=== PATIENT | male | born 1950 | race Two or more races ===

== ENCOUNTER → 2021-04-12 14:09 | Outpatient (BNVA) | payer OTHER, MEDICAID, SELFPAY | PROVIDERS: Visit Provider Urology | DX: N40.1 Benign prostatic hyperplasia with lower urinary tract symptoms (principal); N39.43 Post-void dribbling; R35.1 Nocturia; Z12.5 Encounter for screening for malignant neoplasm of prostate | CPT/HCPCS: 99202 ==

== ENCOUNTER 2021-04-28 13:49 | Outpatient (REF) | payer OTHER, MEDICAID, SELFPAY ==
--- NOTE | ~2021-04-28 | US_ITS ---
EXAMINATION: US ABDOMEN LIMITED CLINICAL INFORMATION: Right inguinal hernia. COMPARISON: None TECHNIQUE: Real-time imaging of the right lower quadrant with and without Valsalva maneuver using a linear transducer. FINDINGS: No hernia is appreciated by ultrasound. There are 2 small right inguinal lymph nodes. These are normal in size and demonstrate normal ultrasound morphology. US/US abdomen limited IMPRESSION: No hernia appreciated by ultrasound.
== END 2021-04-28 13:50 | disposition home or self-care (01) ==
LOC: HO.HMGCX 13:49
PROVIDERS: PCP Internal Medicine Geriatric Medicine; Visit Provider Internal Medicine
DX: K40.91 Unilateral inguinal hernia, without obstruction or gangrene, recurrent (principal)
CPT/HCPCS: 76705

== ENCOUNTER 2021-06-28 07:51 | Outpatient (RCR) | payer OTHER, SELFPAY | END 2021-09-13 15:44 | disposition home or self-care (01) | LOC: HO.WCC 07:51 | PROVIDERS: Visit Provider Physician Assistant | DX: T25.632A Corrosion of second degree of left toe(s) (nail), initial encounter (principal); T32.0 Corrosions involving less than 10% of body surface | CPT/HCPCS: 16020; 97597; 99212; 99213; 99214; 99215 ==

== ENCOUNTER → 2021-06-30 11:28 | Outpatient (BNVA) | payer OTHER, SELFPAY | PROVIDERS: PCP Internal Medicine; Referring Provider Internal Medicine; Visit Provider Surgery | DX: K40.90 Unilateral inguinal hernia, without obstruction or gangrene, not specified as recurrent (principal) | CPT/HCPCS: 99202 ==

== ENCOUNTER 2021-07-27 07:31 | Day surgery (SDC) | payer OTHER, SELFPAY ==
[2021-07-22 10:20] VITALS: BMI 34.1
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
[2021-07-27] VITALS (7 sets, daily range): BP systolic 140–161; BP diastolic 72–92; PULSE 67–89; RESP 16–18; TEMP 36.8–37.3; O2SAT 95–97
[2021-07-27] MEDS: Lactated Ringers 1,000 ML 100 ML IVCONT (08:34)
--- NOTE | 2021-07-27 10:54 | W.PM.OPN ---
Operative Note Operative Note Date of Service: 07/27/21 Narrative: Preoperative diagnosis: Right inguinal hernia Postoperative diagnosis: Same Procedure: Repair of Right inguinal hernia Surgeon: Saji Hair MD Director Of Field Service: Andria Andino PA-C Anesthesia: General LMA Indications for procedure: 71-year-old male patient with morbid obesity presenting with a painful right groin. Subsequent workup with CT in [place] revealed a right inguinal hernia. Operative findings:. Large right inguinal hernia, indirect containing preperitoneal fat. Repaired with a large PHS mesh. Specimen: Lipoma of the cord right side Estimated blood loss: 10 mL Complications: none Procedure details: Patient was brought to the OR and placed in a supine position. After administering general anesthesia the patient's abdomen was prepped with ChloraPrep and draped in a sterile fashion. A surgical time-out was called the consent confirmed. Patient received preoperative antibiotics and Venodyne boots were in place. Local anesthesia consisting of 0.5% Sensorcaine with epinephrine was infiltrated over the right inguinal ligament. Incision was then made in oblique fashion over the inguinal ligament. This carried out through subcutaneous tissue past Trang's fashion up to the external oblique aponeurosis. Additional local was infiltrated below the external oblique aponeurosis. This was then incised with a scalpel wide with the Metzenbaum scissors. Spermatic cord was then dissected free from the surrounding inguinal canal and retracted using a Maria T drain. The floor of the inguinal canal was examined and no direct hernia was identified. Fibers of the cremasteric muscle were then no hernia sac identified. A large lipoma of the cord was identified dissected down to the internal ring. This was then ligated and excised. This was sent as a specimen. The internal ring was then dissected further into the preperitoneal space. The preperitoneal space was widened with an open Ray-Zaid sponge. A large PHS mesh was then obtained and the circular underlay deployed within the preperitoneal space. The overlay was then secured to the pubic tubercle, conjoined tendon, and shelving edge of the inguinal ligament using a 0 Polysorb suture. A slit was made in the mesh in the mesh wrapped around the spermatic cord at the internal ring. This was secured to the shelving edge again using the 0 Polysorb suture. Wounds were then irrigated with saline and suctioned dry. External oblique aponeurosis was then closed using a running 2 0 Polysorb suture. Trang's fascia and dermis reapproximated using interrupted 3-0 Polysorb sutures. Skin was then closed using a running subcuticular 4-0 Polysorb suture. Steri-Strips 2 x 2 gauze and Tegaderm were then applied. The patient tolerated the procedure well. Sponge, instrument, needle counts reported as correct. Patient was transferred to PACU in stable condition.
--- NOTE | 2021-07-27 10:59 | MHC.SHP ---
Pre-Procedural Eval Section A Date of Service: 07/27/21 The patient is an INPATIENT: No Changes since office visit: Yes Patient answered all questions; No Cold of Flu in the past 2 weeks, No New Medical Problems and No Changes in Medication The History & Physical has been completed within 30 days and I have reviewed it.: Yes Section B Chief Complaint: unilateral inguinal hernia Allergies: Allergies Allergy/AdvReac Type Severity Reaction Status Date / Time No Known Allergies Allergy Verified 07/22/21 10:18 Plan Diagnosis/Plan: Unchanged I have reviewed the history and physical and performed a pertinent physical examination on my patient. No changes have occurred unless specified.
== END 2021-07-27 12:40 | disposition home or self-care (01) ==
PROVIDERS: PCP Internal Medicine Geriatric Medicine; Visit Provider Surgery
PROC: (CPT 49505; principal; 2021-07-27 09:30)
DX: K40.90 Unilateral inguinal hernia, without obstruction or gangrene, not specified as recurrent (principal); D17.6 Benign lipomatous neoplasm of spermatic cord; E66.01 Morbid (severe) obesity due to excess calories; Z68.33 Body mass index [BMI] 33.0-33.9, adult; E03.9 Hypothyroidism, unspecified; R73.03 Prediabetes; Z79.899 Other long term (current) drug therapy; Z18.10 Retained metal fragments, unspecified; Z87.828 Personal history of other (healed) physical injury and trauma; Z86.16 Personal history of COVID-19
CPT/HCPCS: 49505; 88304; C1781; J0690; J1100; J1885; J2405; J3010

== ENCOUNTER → 2021-08-04 13:38 | Outpatient (BNVA) | payer OTHER, SELFPAY | PROVIDERS: PCP Internal Medicine; Referring Provider Internal Medicine Geriatric Medicine; Visit Provider Surgery | DX: Z48.815 Encounter for surgical aftercare following surgery on the digestive system (principal) | CPT/HCPCS: 99212 ==

== ENCOUNTER → 2021-09-01 13:14 | Outpatient (BNVA) | payer OTHER, SELFPAY | PROVIDERS: PCP Internal Medicine; Referring Provider Internal Medicine; Visit Provider Surgery | DX: Z48.815 Encounter for surgical aftercare following surgery on the digestive system (principal); Z87.19 Personal history of other diseases of the digestive system | CPT/HCPCS: 99212 ==

== ENCOUNTER 2021-09-02 13:19 | Outpatient (REF) | payer MEDICARE, SELFPAY ==
[2021-09-02 14:49] LABS: MANUAL DIFF FLAG NO
[2021-09-02 15:27] LABS: Basophils Absolute Auto 0.1 X10*3/uL (0.0-0.2); Basophils Percent Auto 0.6 % (0-2); Eosinophils Absolute Auto 0.3 X10*3/uL (0.0-0.4); Eosinophils Percent Auto 3.8 % (0-4); Hematocrit 45.3 % (42.0-52.0); Hemoglobin 14.3 g/dl (14.0-18.0); Imm Gran Abs Auto 0.02 X10*3/uL (0.00-0.03); Imm Gran Pct Auto 0.3 % (0.0-0.4); Lymphocytes Absolute Auto 1.9 X10*3/uL (1.2-4.9); Lymphocytes Percent Auto 23.8 % (20-40); Mean Corpuscular HGB Conc 31.6 g/dl (31.0-36.0); Mean Corpuscular Hemoglobin 28.1 pg (27.0-33.0); Mean Corpuscular Volume 89.2 fL (80.0-98.0); Mean Platelet Volume 9.4 fL (9.4-12.4); Monocytes Absolute Auto 0.7 X10*3/uL (0.1-1.2); Monocytes Percent Auto 8.7 % (2-11); Neutrophils Absolute Auto 4.9 x10*3/uL (2.0-8.3); Neutrophils Percent Auto 62.8 % (45-73); Platelet Count 217 X10*3/uL (160-400); Red Blood Count 5.08 X10*6/uL (4.60-5.80); Red Cell Distribution Width 13.2 % (11.0-16.0); White Blood Count 7.8 X10*3/uL (4.8-10.8)
[2021-09-02 15:52] LABS: Alanine Aminotransferase 30 U/L (0-40); Albumin Level 4.5 g/dL (3.5-5.0); Alkaline Phosphatase 59 U/L (39-117); Anion Gap 12 (12-20); Aspartate Amino Transferase 22 U/L (5-37); Bilirubin Total 0.3 mg/dL (0.0-1.0); Blood Urea Nitrogen 27 mg/dL (9-16); Calcium 10.2 mg/dL (8.4-10.2); Carbon Dioxide 28 mmol/L (22-29); Chloride 105 mmol/L (96-108); Estimated Glomerular Filt Rate 57; Glucose Random 82 mg/dL (60-115); Potassium 5.1 mmol/L (3.3-5.1); Sodium 140 mmol/L (135-145); Total Protein 7.8 g/dL (6.5-8.0)
== END 2021-09-02 13:20 | disposition home or self-care (01) ==
LOC: HO.LAB 13:19
PROVIDERS: PCP Internal Medicine; Referring Provider Internal Medicine Geriatric Medicine; Visit Provider Nurse Practitioner
DX: K62.5 Hemorrhage of anus and rectum (principal); D12.6 Benign neoplasm of colon, unspecified; Z80.0 Family history of malignant neoplasm of digestive organs
CPT/HCPCS: 36415; 80053; 85025; 99202

== ENCOUNTER 2021-09-26 08:53 | Outpatient (REF) | payer OTHER, SELFPAY ==
--- NOTE | ~2021-09-26 | XR_ITS ---
EXAMINATION: XR KNEE, RIGHT CLINICAL INFORMATION: Pain. COMPARISON: None. TECHNIQUE: Four views of the right knee. FINDINGS: No acute fractures or malalignment. There is moderate tricompartmental degenerative osteoarthritis, more notable in the medial and patellofemoral compartments with joint space narrowing and osteophytes. There is an approximately 2.2 cm pedunculated osteochondroma in the proximal fibula projecting away from the epiphysis. Small joint effusion and scattered vascular calcifications. XR/XR knee RT 4V IMPRESSION: No acute fractures or malalignment. Moderate tricompartmental degenerative changes. There is a 2.2 cm pedunculated osteochondroma in the proximal fibula. If symptomatic, surgical referral or further evaluation with an MR could be obtained.
--- NOTE | ~2021-09-26 | XR_ITS ---
EXAMINATION: XR BILATERAL HIPS WITH AP PELVIS CLINICAL INFORMATION: Pain. COMPARISON: None TECHNIQUE: AP view of the pelvis and single views of each hip were obtained. FINDINGS: No acute fractures or malalignment. There is severe degenerative osteoarthritis of the right hip with significant joint space narrowing, subchondral cystic changes and sclerosis, and osteophytes. There are mild to moderate degenerative changes in the left hip. Sacroiliac joints are symmetric. Pubic symphysis is maintained. There is a large approximately 7 cm pedunculated osteochondroma in the proximal left femur. Scattered vascular calcifications. XR/XR hip BI w PEL1V IMPRESSION: No acute fractures or malalignment. Severe degenerative osteoarthritis of the right hip. Large osteochondroma in the proximal left femur, correlate for symptoms, and if indicated consider further evaluation with an MR.
[2021-09-26 09:22] LABS: MANUAL DIFF FLAG NO
[2021-09-26 09:29] LABS: Appearance Urine CLEAR; Color Urine YELLOW; Glucose Urine UA NEG (NEG); Leukocyte Esterase Urine NEG (NEG); Nitrite Urine NEG (NEG); Specific Gravity - Urine 1.025 (1.005-1.025); Urine Blood NEG (NEG); Urine Ketones NEG (NEG); Urine Protein NEG (NEG-TRACE)
[2021-09-26 09:52] LABS: Basophils Percent Auto 0.5 % (0-2); Eosinophils Absolute Auto 0.3 X10*3/uL (0.0-0.4); Eosinophils Percent Auto 4.3 % (0-4); Hematocrit 45.6 % (42.0-52.0); Hemoglobin 14.2 g/dl (14.0-18.0); Imm Gran Abs Auto 0.02 X10*3/uL (0.00-0.03); Imm Gran Pct Auto 0.3 % (0.0-0.4); Lymphocytes Absolute Auto 1.7 X10*3/uL (1.2-4.9); Mean Corpuscular HGB Conc 31.1 g/dl (31.0-36.0); Mean Corpuscular Hemoglobin 27.6 pg (27.0-33.0); Mean Corpuscular Volume 88.5 fL (80.0-98.0); Mean Platelet Volume 9.3 fL (9.4-12.4); Monocytes Absolute Auto 0.6 X10*3/uL (0.1-1.2); Monocytes Percent Auto 8.8 % (2-11); Neutrophils Absolute Auto 3.9 x10*3/uL (2.0-8.3); Neutrophils Percent Auto 60.1 % (45-73); Platelet Count 202 X10*3/uL (160-400); Red Blood Count 5.15 X10*6/uL (4.60-5.80); Red Cell Distribution Width 13.2 % (11.0-16.0); White Blood Count 6.5 X10*3/uL (4.8-10.8)
[2021-09-26 10:12] LABS: Estimated Average Glucose 114 mg/dL; Hemoglobin A1c % 5.6 %
[2021-09-26 10:17] LABS: Alanine Aminotransferase 31 U/L (0-40); Albumin Level 4.6 g/dL (3.5-5.0); Alkaline Phosphatase 57 U/L (39-117); Anion Gap 12 (12-20); Aspartate Amino Transferase 22 U/L (5-37); Bilirubin Total 0.4 mg/dL (0.0-1.0); Blood Urea Nitrogen 27 mg/dL (9-16); Calcium 10.1 mg/dL (8.4-10.2); Carbon Dioxide 28 mmol/L (22-29); Chloride 106 mmol/L (96-108); Cholesterol 248 mg/dL; Estimated Glomerular Filt Rate 59; Glucose Random 98 mg/dL (60-115); HDL Cholesterol 41 mg/dL; LDL Cholesterol Calculated 176 mg/dl; Potassium 5.1 mmol/L (3.3-5.1); Sodium 141 mmol/L (135-145); Total Protein 7.9 g/dL (6.5-8.0); Triglycerides 159 mg/dL; Uric Acid 5.4 mg/dL (3.4-7.0)
[2021-09-26 10:43] LABS: Prostate Specific Antigen 0.58 ng/mL (<0.05-4.0); Thyroid Stimulating Hormone 1.27 uIU/mL (0.32-4.0)
[2021-09-26 11:06] LABS: Vitamin B12 317 pg/mL (200-900)
== END 2021-09-26 08:54 | disposition home or self-care (01) ==
LOC: HO.LAB 08:53
PROVIDERS: PCP Internal Medicine; Visit Provider Internal Medicine
DX: M25.551 Pain in right hip (principal); M25.561 Pain in right knee; E03.9 Hypothyroidism, unspecified; I10 Essential (primary) hypertension; N40.0 Benign prostatic hyperplasia without lower urinary tract symptoms; Z12.5 Encounter for screening for malignant neoplasm of prostate
CPT/HCPCS: 36415; 73521; 73564; 80053; 80061; 81003; 82607; 83036; 84153; 84443; 84550; 85025

== ENCOUNTER → 2021-10-07 10:21 | Outpatient (BNVA) | payer OTHER, SELFPAY | PROVIDERS: PCP Internal Medicine; Visit Provider Orthopaedic Surgery | DX: M16.11 Unilateral primary osteoarthritis, right hip (principal) | CPT/HCPCS: 99202 ==

== ENCOUNTER → 2021-11-04 11:36 | Outpatient (BNVA) | payer OTHER, SELFPAY | PROVIDERS: PCP Internal Medicine; Visit Provider Orthopaedic Surgery | DX: M16.11 Unilateral primary osteoarthritis, right hip (principal); D16.20 Benign neoplasm of long bones of unspecified lower limb; D16.22 Benign neoplasm of long bones of left lower limb | CPT/HCPCS: 99212 ==

== ENCOUNTER 2021-11-08 13:34 | Outpatient (REF) | payer OTHER, SELFPAY ==
--- NOTE | ~2021-11-08 | XR_ITS ---
EXAMINATION: PRE-MRI SCREENING CLINICAL INFORMATION: Rule out foreign body pre-MRI COMPARISON: None TECHNIQUE: 2 views of the right shoulder 3 views of the orbits FINDINGS: Right shoulder: There is evidence of old trauma to the humeral head. There is arthritis at the glenohumeral humeral and acromioclavicular joints. There is linear high attenuation measuring 5 x 20 cm adjacent to the greater tuberosity probably representing soft tissue calcification. There are numerous punctate radiopaque densities in the soft tissues of the proximal upper arm suggestive of soft tissue foreign bodies. Largest measure 1 to 2 mm. Orbits: No radiopaque foreign body is seen about the orbits. Paranasal sinuses are clear. Bony structures are normal. XR/XR pre mri screening IMPRESSION: Right shoulder: Probable old trauma to the right humeral head and severe arthritis. Multiple 1 mm in size radiopaque densities in the soft tissues suggestive of multiple small soft tissue foreign bodies. Larger linear 5 x 20 mm soft tissue density probably representing soft tissue calcification. Normal orbits.
--- NOTE | ~2021-11-08 | XR_ITS ---
EXAMINATION: PRE-MRI SCREENING CLINICAL INFORMATION: Rule out foreign body pre-MRI COMPARISON: None TECHNIQUE: 2 views of the right shoulder 3 views of the orbits FINDINGS: Right shoulder: There is evidence of old trauma to the humeral head. There is arthritis at the glenohumeral humeral and acromioclavicular joints. There is linear high attenuation measuring 5 x 20 cm adjacent to the greater tuberosity probably representing soft tissue calcification. There are numerous punctate radiopaque densities in the soft tissues of the proximal upper arm suggestive of soft tissue foreign bodies. Largest measure 1 to 2 mm. Orbits: No radiopaque foreign body is seen about the orbits. Paranasal sinuses are clear. Bony structures are normal. XR/XR pre mri screening IMPRESSION: Right shoulder: Probable old trauma to the right humeral head and severe arthritis. Multiple 1 mm in size radiopaque densities in the soft tissues suggestive of multiple small soft tissue foreign bodies. Larger linear 5 x 20 mm soft tissue density probably representing soft tissue calcification. Normal orbits.
== END 2021-11-08 13:35 | disposition home or self-care (01) ==
LOC: HO.MRI 13:34
PROVIDERS: Visit Provider Internal Medicine
DX: Z13.89 Encounter for screening for other disorder (principal)

== ENCOUNTER → 2021-11-23 15:04 | Outpatient (BNVA) | payer OTHER, SELFPAY | PROVIDERS: PCP Internal Medicine; Visit Provider Orthopaedic Surgery | DX: Z13.89 Encounter for screening for other disorder (principal) ==

== ENCOUNTER → 2021-12-22 09:46 | Outpatient (BNVA) | payer OTHER, SELFPAY | PROVIDERS: PCP Internal Medicine; Visit Provider Physician Assistant | DX: M16.11 Unilateral primary osteoarthritis, right hip (principal) | CPT/HCPCS: 99212 ==

== ENCOUNTER 2021-12-27 10:07 | Inpatient (IN) | payer OTHER, SELFPAY ==
[2021-12-21 12:18] VITALS: BP 139/68; PULSE 70; O2SAT 97; BMI 34.7
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
[2021-12-21 14:52] LABS: MRSA Nasal PCR NEGATIVE (Negative); SA Nasal PCR NEGATIVE (Negative)
[2021-12-27] VITALS (14 sets, daily range): BP systolic 128–175; BP diastolic 49–89; PULSE 61–80; RESP 8–20; TEMP 36.6–37.1; O2SAT 92–100
--- NOTE | ~2021-12-27 | XR_ITS ---
EXAMINATION: XR PELVIS CLINICAL INFORMATION: [facility] RT COMPARISON: None TECHNIQUE: AP view of the pelvis. FINDINGS: Status post right hip arthroplasty. Orthopedic components in place. No fracture or dislocation. [id number] degenerative change of left hip with joint narrowing and marginal bone spurs. Bony exostosis of the medial proximal femur. This measures about 3 x 6 cm. XR/XR pelvis 1-2V IMPRESSION: Status post right hip arthroplasty.
[2021-12-27] MEDS: Lactated Ringers 1,000 ML 100 ML IVCONT ×2 (10:43→16:04)
[2021-12-27] MEDS: oxyCODONE HCl ER 10 MG TAB.ER.12H PO ×2 (10:44→20:18)
[2021-12-27 10:46] LABS: COVID-19 Test Negative (Negative)
--- NOTE | 2021-12-27 10:51 | PHA.MEDREC ---
Pharmacy Consult ? Medication Reconciliation Pharmacy has completed the medication reconciliation.
--- NOTE | 2021-12-27 11:21 | MHC.SHP ---
Pre-Procedural Eval Section A Date of Service: 12/27/21 The patient is an INPATIENT: No Changes since office visit: Yes Patient answered all questions; No Cold of Flu in the past 2 weeks, No New Medical Problems and No Changes in Medication The History & Physical has been completed within 30 days and I have reviewed it.: Yes Section B Chief Complaint: RT HERNAN Allergies: Allergies Allergy/AdvReac Type Severity Reaction Status Date / Time No Known Allergies Allergy Verified 12/27/21 10:56 Plan I have reviewed the history and physical and performed a pertinent physical examination on my patient. No changes have occurred unless specified.
--- NOTE | 2021-12-27 13:23 | P.BOP_ITS ---
Brief Operative Note Date of Service: 12/27/21 Pre-op diagnosis: Right hip OA Post-op diagnosis: same Procedure: Right HERNAN Implants: Indra Trident2 #58 with lipped liner, Accolade2 #4 127 deg with lipped liner Indra Accolade2 #4 127 deg with + 5 36 ceramic femoral head Surgeon: Enrrique Infante MD Anesthesia: GETA and local Was an Brim Pouncer Machine Operator used for this Procedure?: Yes Brim Pouncer Machine Operator: Tootie Haynes Estimated blood loss (mL): 250 IV fluids (mL): 1,000 Pathology: other Condition: stable Disposition: PACU
--- NOTE | 2021-12-27 13:30 | W.PM.OPN ---
Operative Note Operative Note Date of Service: 12/27/21 Narrative: Date of Service: 12/27/21 Pre-op diagnosis: Right hip OA Post-op diagnosis: same Procedure: Right HERNAN Implants: Kerrick Trident2 #58 with lipped liner, Accolade2 #4 127 deg with lipped liner Indra Accolade2 #4 127 deg with + 5 36 ceramic femoral head Surgeon: Enrrique Infante MD Anesthesia: GETA and local Was an Voltage Regulator Assembler used for this Procedure?: Yes Voltage Regulator Assembler: Tootie Haynes Estimated blood loss (mL): 250 IV fluids (mL): 1,000 Pathology: other Condition: stable Disposition: PACU Procedure in detail: Patient was brought into the operating room and placed in the left lateral decubitus position. All bony prominences were well padded and the limb was prepped and draped in standard sterile fashion. Time-out was called to identify proper site procedure proper surgeon IV antibiotics and 1 g of transaxemic acid were administered. I began by making a curvilinear incision over the posterolateral aspect of the greater trochanter. Dissection was taken down to the tensor fascia which was incised in line with the incision and a Charnley retractor was placed. Cautery was used to maintain hemostasis. A werewolf device was also used. The hip was internally rotated and the external rotators were identified. The vessels were cauterized and a full-thickness capsular/external rotator layer was developed starting just proximal to the piriformis. This layer was tagged and a dull Hohmann retractor was placed underneath the neck in the hip was dislocated. The head was deformed and eburnated. A neck cut was made 1 cm proximal to the lesser trochanter and the head and neck were removed and measured as a 54mm on the back table. I started with a 50 reamer and medialized and sequentially reamed up to a size58 and impacted a 58mm at approximately 45 degrees of inclination and 25 degrees of version. I then placed a lipped liner and turned my attention to the femur. A Werewolf cautery wand was used to maintain hemostasis. I identified the piriformis insertion and used this as a starting point for my leatha cutter. The medius tendon was protected with a Hibs retractor. I then used a Charnley awl to identify the canal and a curved curette to remove the lateral bone. I irrigated copiously. I then sequentially broached in the patient's natural version to a size 4 and placed my trial implants. Using a trail head I took the hip through range of motion. I was very satisfied with the stability and length usiang a + 5.. Therefore I removed all instrumentation and copiously irrigated. I placed my final femoral implant and again took the hip through range of motion and was satisfied with the stability and length with a + 5. The final implant was impacted in place and the hip reduced.. I then irrigated for 3 minutes with iodine and placed 1 g of local tranaxemic acid. I then performed a capsular closure with 2.0 fiberwire, Trang's fascia with 0 Vicryl, subcuticular with 2-0 Vicryl and the skin with mandi. Patient was placed into a sterile dressing. Radiographs were obtained at the completion of the case and I was satisfied with the component position. Patient was extubated brought to the recovery room in stable condition.
[2021-12-27] MEDS: fentaNYL citrate/PF 100 MCG/2 ML VIAL 25 MCG IVPUSH (14:32)
[2021-12-27] MEDS: oxyCODONE HCl Immed Release 5 MG TABLET PO (14:34)
[2021-12-27] MEDS: 0.9 % Sodium Chloride Flush 3 ML SYRINGE IVFLUSH (16:03)
[2021-12-27] MEDS: ceFAZolin Sodium/Dextrose,Iso 2 GM/50 ML PIGGYBACK IV (17:53)
[2021-12-27] MEDS: Acetaminophen 325 MG TABLET 650 MG PO (19:45)
[2021-12-27] MEDS: Tamsulosin HCL 0.4 MG CAPSULE PO (20:19)
[2021-12-27] MEDS: Docusate Sodium 100 MG CAPSULE PO (20:19)
[2021-12-28] MEDS: Lactated Ringers 1,000 ML 100 ML IVCONT ×3 (00:42→21:20)
[2021-12-28 03:00] VITALS: BP 135/65; PULSE 69; RESP 18; TEMP 36.6; O2SAT 95
[2021-12-28 05:50] LABS: Basophils Percent Auto 0.1 % (0-2); Eosinophils Percent Auto 0.1 % (0-4); Hematocrit 34.5 % (42.0-52.0); Hemoglobin 11.1 g/dl (14.0-18.0); Imm Gran Abs Auto 0.05 X10*3/uL (0.00-0.03); Imm Gran Pct Auto 0.4 % (0.0-0.4); Lymphocytes Absolute Auto 1.1 X10*3/uL (1.2-4.9); Lymphocytes Percent Auto 8.2 % (20-40); MANUAL DIFF FLAG NO; Mean Corpuscular HGB Conc 32.2 g/dl (31.0-36.0); Mean Corpuscular Hemoglobin 28.3 pg (27.0-33.0); Mean Platelet Volume 9.9 fL (9.4-12.4); Monocytes Absolute Auto 0.9 X10*3/uL (0.1-1.2); Monocytes Percent Auto 7.3 % (2-11); Neutrophils Absolute Auto 10.8 x10*3/uL (2.0-8.3); Neutrophils Percent Auto 83.9 % (45-73); Platelet Count 182 X10*3/uL (160-400); Red Blood Count 3.92 X10*6/uL (4.60-5.80); Red Cell Distribution Width 12.9 % (11.0-16.0); White Blood Count 12.9 X10*3/uL (4.8-10.8)
[2021-12-28] MEDS: Levothyroxine Sodium 100 MCG TABLET PO (05:51)
[2021-12-28 06:05] LABS: Anion Gap 13 (12-20); Blood Urea Nitrogen 22 mg/dL (9-16); Calcium 8.6 mg/dL (8.4-10.2); Carbon Dioxide 24 mmol/L (22-29); Chloride 103 mmol/L (96-108); Creatinine Clr Calc Pharmacy 63.1; Estimated Glomerular Filt Rate 56; Glucose Fasting 138 mg/dL (60-99); Potassium 5.1 mmol/L (3.3-5.1); Sodium 135 mmol/L (135-145)
[2021-12-28 07:00] VITALS: BP 145/71; PULSE 99; RESP 18; TEMP 36; O2SAT 99
[2021-12-28] MEDS: oxyCODONE HCl Immed Release 5 MG TABLET 10 MG PO ×2 (07:22→11:14)
[2021-12-28] MEDS: oxyCODONE HCl ER 10 MG TAB.ER.12H PO ×2 (07:25→20:23)
[2021-12-28] MEDS: Docusate Sodium 100 MG CAPSULE PO ×2 (07:25→20:24)
[2021-12-28] MEDS: Losartan Potassium 50 MG TABLET PO (07:25)
[2021-12-28] MEDS: Acetaminophen 325 MG TABLET 650 MG PO ×2 (07:26→20:27)
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
--- NOTE | 2021-12-28 10:17 | PM.PNORT ---
Subjective Subjective Date of Service: 12/28/21 Interval history: postop day 1 status post right total hip arthroplasty. No overnight events. Pain is well managed. No additional complaints. Physical Exam Vital Signs: Vital Signs: Last Vital Signs Temp 96.8 F 12/28/21 07:00 Pulse 99 12/28/21 07:00 Resp 18 12/28/21 07:00 BP 145/71 H 12/28/21 07:00 Pulse Ox 99 12/28/21 07:00 O2 Del Method 12/28/21 07:00 O2 Flow Rate 6 12/27/21 14:03 BMI result Body Mass Index 34.7 Const: General: cooperative, healthy appearing and no acute distress Resp: Effort & Inspection: normal respiratory effort and able to speak in complete sentences Cardio: Rate: regular rate Peripheral pulses: Peripheral pulses 2+ throughout GI: Palpation (GI): Soft to palpation Skin: Lesions: no lesions Rashes: no rashes Extrem: Other: Right hip Aquacel dressing is clean dry and intact. Patient is able to dorsiflex and plantar flex. Sensation intact. Pedal pulse intact. Procedures Date of Service Date of Service: 12/28/21 Progress Note: A&P Assessment and plan (1) Status post total hip replacement, right: Status: Acute Plan Continue pain mgmnt Begin Aspirin for dvt ppx begin PT for right total hip arthroplasty Dispo planning-Pending PT eval, pain mgmnt Time Spent With Patient Time: Total time spent is greater than 50% in coordination of care (as documented) at patient's floor/unit and/or counseling patient: Quality Stroke Does the patient have a stroke diagnosis?: No VTE Prior VTE?: No VTE Risk Level:: Medical - moderate - high VTE Device Contraindication: N/A - Device Ordered VTE Drug Contraindication: N/A - Med Ordered
[2021-12-28 11:00] VITALS: BP 122/73; PULSE 72; RESP 18; TEMP 36.6; O2SAT 97
[2021-12-28] MEDS: Aspirin 325 MG TABLET PO ×2 (11:13→20:24)
[2021-12-28 15:10] VITALS: BP 106/51; PULSE 61; RESP 18; TEMP 36.8; O2SAT 96
--- NOTE | 2021-12-28 16:10 | MHC.CM.PN ---
REFERRAL TO [facility] FOR HOME P.T. CASE MANAGEMENT TO FOLLOW UP TOMORROW WITH PATIENT ASSESSMENT AND PROGRESS NOTE
--- NOTE | 2021-12-28 18:46 | HO.POSTANES ---
Post Anesthesia Evaluation Post Anesthesia Evaluation Vital Signs: Vital Signs Temp Pulse Resp BP Pulse Ox O2 Del Method 12/28/21 15:10 98.2 F 61 18 106/51 L 96 Room Air 12/28/21 11:00 97.9 F 72 18 122/73 97 Room Air 12/28/21 07:00 96.8 F 99 18 145/71 H 99 Room Air Anesthesia: General Endotracheal-GETA Mental Status: Awake Pain Control: Satisfactory Nausea/Vomiting: None Hydration: Adequate Anesthesia-Related Issues: No Anes. Related Issues
[2021-12-28 19:47] VITALS: BP 132/55; PULSE 76; RESP 18; TEMP 37; O2SAT 96
[2021-12-28] MEDS: Atorvastatin Calcium 20 MG TABLET PO (20:23)
[2021-12-28] MEDS: Tamsulosin HCL 0.4 MG CAPSULE PO (20:27)
[2021-12-28 23:56] VITALS: BP 111/47; PULSE 75; RESP 17; TEMP 37.1; O2SAT 94
[2021-12-29 04:00] VITALS: BP 124/53; PULSE 71; RESP 18; TEMP 36.7; O2SAT 97
[2021-12-29 05:42] LABS: MANUAL DIFF FLAG NO
[2021-12-29 05:46] LABS: Basophils Percent Auto 0.2 % (0-2); Eosinophils Absolute Auto 0.2 X10*3/uL (0.0-0.4); Eosinophils Percent Auto 2.1 % (0-4); Hematocrit 30.7 % (42.0-52.0); Hemoglobin 9.8 g/dl (14.0-18.0); Imm Gran Abs Auto 0.01 X10*3/uL (0.00-0.03); Imm Gran Pct Auto 0.1 % (0.0-0.4); Lymphocytes Absolute Auto 1.2 X10*3/uL (1.2-4.9); Lymphocytes Percent Auto 13.9 % (20-40); Mean Corpuscular HGB Conc 31.9 g/dl (31.0-36.0); Mean Corpuscular Hemoglobin 28.4 pg (27.0-33.0); Mean Platelet Volume 9.5 fL (9.4-12.4); Neutrophils Absolute Auto 6.1 x10*3/uL (2.0-8.3); Neutrophils Percent Auto 71.7 % (45-73); Platelet Count 128 X10*3/uL (160-400); Red Blood Count 3.45 X10*6/uL (4.60-5.80); White Blood Count 8.6 X10*3/uL (4.8-10.8)
[2021-12-29 05:58] LABS: Anion Gap 11 (12-20); Blood Urea Nitrogen 22 mg/dL (9-16); Calcium 8.1 mg/dL (8.4-10.2); Carbon Dioxide 26 mmol/L (22-29); Chloride 105 mmol/L (96-108); Creatinine Clr Calc Pharmacy 68.4; Estimated Glomerular Filt Rate > 60; Glucose Fasting 106 mg/dL (60-99); Potassium 4.6 mmol/L (3.3-5.1); Sodium 137 mmol/L (135-145)
[2021-12-29] MEDS: Levothyroxine Sodium 100 MCG TABLET PO (06:05)
--- NOTE | 2021-12-29 07:23 | P.F2F_ITS ---
Service Date Service Date: 12/29/21 Encounter Date of encounter: 12/29/21 Reasons for Services Signs and symptoms assessed: Pt. is considered homebound due to recent surgery. Unable to drive, poor balance, poor gait mechanics. Reason for physical therapy: home safety and mobility, therapeutic exercises, restore joint function, gait/transfer training, assess need for DME and ADL training Reason for occupational therapy: home safety and mobility, therapeutic exercises, restore joint function, gait/transfer training, assess need for DME and ADL training Homebound: Leaving the home is medically contraindicated at this time without the asist of a device and/or another person due th the listed conditions above and below. Reason homebound: unsteady gait / fall risk, leg weakness, pain with ambulation, pain with transfers, poor balance / fall risk and unable to drive Certification: Based on the above findings, I certify that this patient is confined to the home and needs intermittent senior living care, physical therapy and/or speech therapy, or continues to need occupational therapy. The patient is under my care, and I have initiated the establishment of the plan of care. The patient will be followed by a physician who will periodically review the plan of care.
[2021-12-29] MEDS: Losartan Potassium 50 MG TABLET PO (07:36)
[2021-12-29] MEDS: Aspirin 325 MG TABLET PO (07:37)
[2021-12-29] MEDS: Acetaminophen 325 MG TABLET 650 MG PO (07:37)
[2021-12-29] MEDS: Docusate Sodium 100 MG CAPSULE PO (07:38)
[2021-12-29 07:47] VITALS: BP 148/72; PULSE 72; RESP 18; TEMP 37; O2SAT 94
--- NOTE | 2021-12-29 08:25 | P.DS_ITS ---
DS: Providers Provider Date of Service: 12/29/21 Date of admission: 12/27/21 10:07 Primary care physician: Stanley Mckay MD Consults: 12/27/21 15:43 Consult to Hospitalist Routine Consulting Provider: Hospitalist Reason For Exam: routine medical mangement DS: Diagnosis Discharge Diagnosis (1) Status post total hip replacement, right: Status: Acute (2) Hypertension: DS: Summary Hospital Course Hospital Course: The patient underwent a successful right total hip arthroplasty, they were transferred to PACU and then to the floor to recover. During their stay, their vitals were stable, afebrile at 98.1. Labs were unremarkable, H/H 9.8/30.7. POD 1 they were started on Aspirin 325mg po bid for DVT ppx, they also received Physical Therapy services twice a day. Prior to discharge, their dressing was changed, incision clean dry and intact, new Aquacel dressing applied and the plan was to be discharged home with VNA services. Time Spent with Patient Time attestation: Total time spent providing and/or coordinating discharge services: Discharge coordination time: Less than 30 minutes Quality: Safe Use of Opioids Does Pt have an Active Cancer Diagnosis on the Problem List?: No Quality: Stroke Does the patient have a stroke diagnosis?: No Physical Exam Vital Signs: Vital Signs: Last Vital Signs Temp 98.6 F 12/29/21 07:47 Pulse 72 12/29/21 07:47 Resp 18 12/29/21 07:47 BP 148/72 H 12/29/21 07:47 Pulse Ox 94 12/29/21 07:47 O2 Del Method 12/29/21 07:47 O2 Flow Rate 6 12/27/21 14:03 BMI result Body Mass Index 34.7 Extrem: Other: Right hip incision clean dry and intact. James intact. New Aquacel dressing applied. NVI. DS: Data Data Completed and Pending Pending studies at discharge: Pending at discharge 12/27/21 13:14 Surgical [PTH] Routine Labs on day of discharge: Laboratory Results - last 24 hr 12/29/21 12/29/21 05:33 05:33 WBC 8.6 RBC 3.45 L Hgb 9.8 L Hct 30.7 L MCV 89.0 MCH 28.4 MCHC 31.9 RDW 13.0 Plt Count 128 L D MPV 9.5 Immature Gran % (Auto) 0.1 Neut % (Auto) 71.7 Lymph % (Auto) 13.9 L Pep[place] % (Auto) 12.0 H Eos % (Auto) 2.1 Baso % (Auto) 0.2 Lymph # (Auto) 1.2 Pepin # (Auto) 1.0 Eos # (Auto) 0.2 Baso # (Auto) 0.0 Abs Immat Gran (auto) 0.01 Absolute Neuts (auto) 6.1 Absolute Nucleated RBC 0.000 Nucleated RBC % (auto) 0.0 Sodium 137 Potassium 4.6 Chloride 105 Carbon Dioxide 26 Anion Gap 11 L BUN 22 H Creatinine 1.18 Estim Creat Clear Calc 68.4 Estimated GFR > 60 Fasting Glucose 106 H Calcium 8.1 L Discharge Plan Discharge Patient Disposition: Home, Self-Care Discharge Diagnosis: s/p rtha Referrals: Rom Albret PA-C [Physician [employer]] - 01/12/22 12:45 pm Discharge Medications: New acetaminophen 325 mg Tablet 650 mg PO Q6H PRN (Reason: Pain, Mild (Pain Scale 1-3)) 30 Days Qty: 240 0RF aspirin 325 mg Tablet 325 mg PO BID 42 Days Qty: 84 0RF oxycodone 10 mg tablet 10 mg PO Q4H PRN (Reason: Pain, Moderate (Pain Scale 4-6) 7 Days Qty: 42 0RF Rx Instructions: Partial Fill upon patient request. docusate sodium 100 mg Capsule 100 mg PO BID 30 Days Qty: 60 0RF [facility] See Rx Instructions .MEDSUPPLY Qty: 1 0RF Rx Instructions: Folding Front wheeled walker (DME) Reusable Under Pads See Rx Instructions .Route .MEDSUPPLY Qty: 1 0RF Rx Instructions: Reusable Under Pad Two changes per day length of need x3 months rosuvastatin 5 mg tablet 1 tab PO DAILY losartan 50 mg tablet 1 tab PO DAILY tamsulosin 0.4 mg capsule 0.4 mg PO BEDTIME 30 Days Qty: 30 1RF diclofenac potassium 50 mg tablet 50 mg PO TID levothyroxine 100 mcg tablet 100 mcg PO DAILY (DME) blood pressure test kit-large Kit See Rx Instructions .ROUTE DAILY Qty: 1 Rx Instructions: As directed Discharge Orders: Discharge Order (Routine); Ordered 12/29/21 Ordered By: Tootie Haynes Diet: Regular diet Activity on Discharge: Use cane or walker Stand Alone Forms: Patient Portal Discharge page Care Plan Goals: restore fxn to rt hip Health Concerns: none Plan of Treatment: Physical Therapy for total hip arthroplasty: posterior precautions, gait training, ROM, strength Limit stair climbing No showering, no tub bath-keep dressing clean, dry and intact No driving x6 weeks Continue Lovenox tabs once a day x 4 weeks Follow up with [facility] in 2 weeks Assessment: stable for discharge
--- NOTE | 2021-12-29 08:48 | MHC.CM.PN ---
PATIENT LIVES WITH HIS /HCP COPY REQUESTED. HE IS NOT VACCINATED AGAINST COVID-19 AND HAS HAD THE VIRUS 2 TIMES. PATIENT HAS A WALKER IN THE HOME AND DAUGHTER/PROCESS VALIDATION ENGINEER WILL PROVIDE TRANSPORT. HE IS DC TODAY WITH [facility] P.T. IMM 12/28 IN CHART ASSESSMENT COMPLETED WITH HELP OF UNIT REACTOR OPERATOR SERVICES
[2021-12-29 09:41] VITALS: BP 148/72; PULSE 72; O2SAT 94
== END 2021-12-29 12:05 | disposition home or self-care (01) | DRG 470 ==
LOC: HO.SSSA 10:11 → HO.S3 14:33
PROVIDERS: Physician Assistant; Admitting Provider Orthopaedic Surgery; PCP Internal Medicine; Visit Provider Orthopaedic Surgery
PROC: 0SR903A Replacement of Right Hip Joint with Ceramic Synthetic Substitute, Uncemented, Open Approach (ICD-10-PCS; CPT 27130; principal; 2021-12-27 12:40)
DX: M16.11 Unilateral primary osteoarthritis, right hip (principal); I10 Essential (primary) hypertension; E03.9 Hypothyroidism, unspecified; N40.0 Benign prostatic hyperplasia without lower urinary tract symptoms; E78.5 Hyperlipidemia, unspecified; R73.03 Prediabetes; Z20.822 Contact with and (suspected) exposure to COVID-19; Z86.16 Personal history of COVID-19; Z79.890 Hormone replacement therapy; Z79.899 Other long term (current) drug therapy
CPT/HCPCS: 36415; 72170; 80048; 85025; 86850; 86900; 86901; 87635; 87640; 87641; 88304; 88311; 97116; 97162; 97165; 97530; C1776; J0131; J0690; J1100; J1170; J2250; J2405; J3010

== ENCOUNTER 2022-02-06 11:00 | Outpatient (RCR) | payer OTHER, SELFPAY ==
[2022-01-23 10:55] VITALS: BP 110/64; PULSE 71; O2SAT 96
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
== END 2022-03-14 14:42 | disposition home or self-care (01) ==
LOC: HO.PTWFD 11:00
PROVIDERS: PCP Internal Medicine; Visit Provider Orthopaedic Surgery
DX: Z96.641 Presence of right artificial hip joint (principal)
CPT/HCPCS: 97110; 97162; 97530

== ENCOUNTER 2022-03-23 | Outpatient (REF) | payer OTHER, SELFPAY ==
--- NOTE | ~2022-03-23 | XR_ITS ---
EXAMINATION: XR PELVIS CLINICAL INFORMATION: M25.559 - Pain in unspecified hip. COMPARISON: 12/27/2021 TECHNIQUE: AP view of the pelvis. FINDINGS: Prosthetic components of the right total hip arthroplasty appear appropriately aligned without periprosthetic fracture or lucency. A small amount of heterotopic bone is present along the lateral margin of the acetabular roof. There is [id number] osteoarthritis in the left hip with nonuniform cephalad joint space narrowing and moderate sized marginal osteophytes at the acetabulum. Minimal osteoarthritis in the pubic symphysis and SI joints. Heterotopic ossification along the medial margin of the left proximal femoral diaphysis is only partially imaged on this study. Enthesopathic spurring is present at the anterior superior iliac spines. Degenerative spondylosis is present in the lower lumbar spine. XR/XR pelvis 1-2V IMPRESSION: Appropriate alignment of the right total hip arthroplasty without evidence of complications. [id number] osteoarthritis in the left hip.
== END 2022-03-23 00:01 | disposition home or self-care (01) ==
LOC: HO.HOSX
PROVIDERS: Visit Provider Orthopaedic Surgery
DX: M25.551 Pain in right hip (principal); M25.552 Pain in left hip
CPT/HCPCS: 72170

== ENCOUNTER 2023-01-26 13:57 | Outpatient (REF) | payer OTHER, SELFPAY ==
[2023-01-26 16:16] LABS: MANUAL DIFF FLAG NO
[2023-01-26 16:36] LABS: Basophils Percent Auto 0.5 % (0-2); Eosinophils Absolute Auto 0.3 X10*3/uL (0.0-0.4); Hematocrit 44.1 % (42.0-52.0); Hemoglobin 13.9 g/dl (14.0-18.0); Imm Gran Abs Auto 0.02 X10*3/uL (0.00-0.03); Imm Gran Pct Auto 0.3 % (0.0-0.4); Lymphocytes Absolute Auto 1.7 X10*3/uL (1.2-4.9); Lymphocytes Percent Auto 26.1 % (20-40); Mean Corpuscular HGB Conc 31.5 g/dl (31.0-36.0); Mean Corpuscular Hemoglobin 27.3 pg (27.0-33.0); Mean Corpuscular Volume 86.6 fL (80.0-98.0); Mean Platelet Volume 9.7 fL (9.4-12.4); Monocytes Absolute Auto 0.6 X10*3/uL (0.1-1.2); Monocytes Percent Auto 9.3 % (2-11); Neutrophils Absolute Auto 3.8 x10*3/uL (2.0-8.3); Neutrophils Percent Auto 59.8 % (45-73); Platelet Count 193 X10*3/uL (160-400); Red Blood Count 5.09 X10*6/uL (4.60-5.80); Red Cell Distribution Width 13.3 % (11.0-16.0); White Blood Count 6.3 X10*3/uL (4.8-10.8)
[2023-01-26 16:58] LABS: Estimated Average Glucose 111 mg/dL; Hemoglobin A1c % 5.5 %
[2023-01-26 17:10] LABS: Alanine Aminotransferase 22 U/L (0-40); Albumin Level 4.2 g/dL (3.5-5.0); Alkaline Phosphatase 54 U/L (39-117); Anion Gap 18 (12-20); Aspartate Amino Transferase 19 U/L (5-37); Bilirubin Total 0.3 mg/dL (0.0-1.0); Blood Urea Nitrogen 19 mg/dL (9-16); Calcium 9.6 mg/dL (8.4-10.2); Carbon Dioxide 19 mmol/L (22-29); Chloride 107 mmol/L (96-108); Cholesterol 133 mg/dL; Estimated Glomerular Filt Rate > 60; Glucose Random 93 mg/dL (60-115); HDL Cholesterol 35 mg/dL; LDL Cholesterol Calculated 80 mg/dl; Potassium 4.1 mmol/L (3.3-5.1); Sodium 140 mmol/L (135-145); Total Protein 7.4 g/dL (6.5-8.0); Triglycerides 94 mg/dL
[2023-01-26 17:15] LABS: TSH reflex Free T4 0.49 uIU/mL (0.32-4.0); Vitamin D 25-OH Total 47.1 ng/mL (>30)
[2023-01-26 17:34] LABS: Folate 10.4 ng/mL (> or = 4.0); Vitamin B12 433 pg/mL (200-900)
[2023-01-26 18:59] LABS: Creatinine Urine 126.26 mg/dL; Microalbum/Creatinine Ratio Ur 7.1 ug/mg cr
[2023-01-27 14:52] LABS: CT PCR NOT DETECTED (Not Detect.); NG PCR NOT DETECTED (Not Detect.)
[2023-01-29 04:01] LABS: Syphilis Screen Nonreactive (Nonreactive)
[2023-01-29 04:20] LABS: ~HepC Num1 0.11 S/CO (0.00-0.79); ~Hepatitis C Antibody Nonreactive (Nonreactive)
[2023-01-29 04:29] LABS: HBS Num1 0.51 mIU/mL (0-7.99); HBc Num1 0.11 S/CO (0.00-0.79); HBsAGNum1 0.39 S/CO (0.00-0.99); HIV AB/AG Nonreactive (Nonreactive); HIV Num 1 0.07 S/CO (0.00-0.99); Hepatitis B Core Antibody Nonreactive (Nonreactive); Hepatitis B Surface Antigen Negative (Negative); ~Hepatitis B Surface Antibody NONREACTIVE (Nonreactive)
[2023-01-30 10:04] LABS: Free Prostate Spec Ag 0.1 ng/mL; Percent Free Prostate Spec Ag 25 % (calc) (>25); Prostate Specific Ag Total 0.4 ng/mL (< OR = 4.0)
== END 2023-01-26 13:58 | disposition home or self-care (01) ==
LOC: HO.HHCL 13:57
PROVIDERS: Visit Provider Student in an Organized Health Care Education/Training Program
DX: Z00.00 Encounter for general adult medical examination without abnormal findings (principal); Z11.4 Encounter for screening for human immunodeficiency virus [HIV]; Z20.2 Contact with and (suspected) exposure to infections with a predominantly sexual mode of transmission; Z13.220 Encounter for screening for lipoid disorders; R73.03 Prediabetes; E03.9 Hypothyroidism, unspecified
CPT/HCPCS: 0353U; 80053; 80061; 82043; 82306; 82607; 82746; 83036; 84154; 84443; 85025; 86704; 86706; 86780; 86803; 87340; 87389

== ENCOUNTER 2023-02-02 09:03 | Outpatient (REF) | payer OTHER, SELFPAY | END 2023-02-02 09:04 | disposition home or self-care (01) | LOC: HO.HOSX 09:03 | PROVIDERS: Visit Provider Orthopaedic Surgery | DX: Z13.89 Encounter for screening for other disorder (principal) ==

== ENCOUNTER 2023-03-23 09:15 | Outpatient (REF) | payer OTHER, SELFPAY ==
--- NOTE | ~2023-03-23 | XR_ITS ---
EXAMINATION: XR PELVIS CLINICAL INFORMATION: Pain COMPARISON: 03/23/2022 TECHNIQUE: AP view of the pelvis. FINDINGS: The right total hip arthroplasty components are in stable position and alignment without evidence of loosening or fracture. Moderate osteoarthritis of the joint is again noted. Heterotopic ossification contiguous with the medial aspect of the proximal left femoral diaphysis appears similar, only partially imaged. XR/XR pelvis 1-2V IMPRESSION: 1. Stable right total hip arthroplasty without evidence of loosening or fracture. 2. Moderate osteoarthritis of the left hip joint.
== END 2023-03-23 09:16 | disposition home or self-care (01) ==
LOC: HO.HOSX 09:15
PROVIDERS: Visit Provider Orthopaedic Surgery
DX: M25.551 Pain in right hip (principal); Z96.641 Presence of right artificial hip joint; Z91.81 History of falling
CPT/HCPCS: 72170; 99212

== ENCOUNTER 2023-03-23 12:16 | Outpatient (AMB) | payer OTHER, SELFPAY ==
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
== END 2023-03-23 12:55 | disposition home or self-care (01) ==
PROVIDERS: PCP Internal Medicine; Visit Provider Orthopaedic Surgery
DX: Z47.1 Aftercare following joint replacement surgery (principal); Z96.641 Presence of right artificial hip joint
CPT/HCPCS: 99213

== ENCOUNTER 2023-06-11 13:54 | Outpatient (REF) | payer MEDICARE, OTHER, SELFPAY ==
[2023-06-11 16:17] LABS: Appearance Urine Cloudy; Color Urine Yellow; Glucose Urine UA Negative (Negative); Leukocyte Esterase Urine Negative (Negative); Nitrite Urine Negative (Negative); PH 5.5 (5.0-9.0); Urine Blood Negative (Negative); Urine Ketones Negative (Negative); Urine Protein Negative (Neg-Trace)
[2023-06-11 16:22] LABS: Bacteria Urine None Seen (None Seen); Hyaline Casts Urine 0-2 /LPF (0-2); RBC Urine 0-2 /HPF (0-2); Squamous Epithelial Cell Urine 0-2 /HPF (0-2); WBC Urine 0-5 /HPF (0-5)
== END 2023-06-11 13:55 | disposition home or self-care (01) ==
LOC: HO.HHCL 13:54
PROVIDERS: Visit Provider Internal Medicine
DX: R10.30 Lower abdominal pain, unspecified (principal)
CPT/HCPCS: 81001; 87086